=== PATIENT | female | born 1960 | race Caucasian/White ===

== ENCOUNTER → 2019-01-06 | Outpatient (CLI) | payer MEDICARE ==
--- NOTE | 2019-01-06 10:37 | Diagnostic Imaging Report ---
PROCEDURE: CT head without contrast. TECHNIQUE: Multiple contiguous axial images were obtained through the brain without the use of intravenous contrast. Auto Exposure Controls were utilized during the CT exam to meet ALARA standards for radiation dose reduction. INDICATION: Head injury. Headaches. Blurred vision. COMPARISON: None. FINDINGS: No intracranial hemorrhage, mass effect, hydrocephalus or extra-axial fluid collections. No CT evidence of a territorial infarction. Osseous structures are intact. The visualized paranasal sinuses and mastoids are clear. IMPRESSION: No acute intracranial CT findings. Dictated by: Dictated on workstation # [id number]
== END ==
LOC: RAD FS 09:56
PROVIDERS: ATTEND Nurse Practitioner Family
DX: S09.90XA Unspecified injury of head, initial encounter (principal); H53.8 Other visual disturbances
CPT/HCPCS: 70450

== ENCOUNTER → 2020-04-04 | Outpatient (CLI) | payer MEDICARE ==
[~2020-04-04] MED LIST: CATHETER FLUSH 10 ML SYR IV PRN; HOLD METFORMIN - RECEIVED CONTRAST 20 ML VIAL IV SCH; IOHEXOL 350 MG/ML 100 ML (OMNIPAQUE 350) VIAL IV ONE; NS 100 ML (IVPB) BAG IV ONE
--- NOTE | 2020-04-04 12:53 | Diagnostic Imaging Report ---
PROCEDURE: CT abdomen and pelvis with contrast. TECHNIQUE: Multiple contiguous axial images were obtained through the abdomen and pelvis after administration of intravenous contrast. Auto Exposure Controls were utilized during the CT exam to meet ALARA standards for radiation dose reduction. INDICATION: Lower abdominal pain, history of ovarian carcinoma. COMPARISON: There are no prior studies available for comparison. There is a lobulated 3.4 x 4.8 cm solid mass along the posterior aspect of the rectosigmoid junction. Along the lateral margin of this mass, on the right, there is a contiguous 1.5 x 2.1 cm low density area which may represent a cyst. This mass is of uncertain etiology but should be considered neoplastic until proven otherwise. Whether this is related to the patient's diagnosis of ovarian carcinoma or whether this is arising from the rectosigmoid portion of the colon is unclear. Endoscopy would be recommended for further evaluation. If further imaging is desired, then a PET/CT exam should be obtained. The uterus and ovaries appear to be surgically absent. The urinary bladder is grossly unremarkable. There does appear to be a fair amount of fecal material throughout the colon. The appendix was not well-visualized but there are no indirect signs of acute appendicitis. There is a lobulated 1.4 cm area of low density in the left lobe of the liver. This is most likely a cyst. There are also a few subcentimeter areas of low density in the left and right lobes. These too are probably cysts. If further study is desired, ultrasound would be recommended. The liver is otherwise homogeneous and not enlarged. The spleen, pancreas, gallbladder, adrenals, kidneys, aorta, portal vein and inferior vena cava show no sign of an acute abnormality. The stomach is not well distended and difficult to assess. The lung bases are clear. The bone windows show no evidence for a fracture or for a destructive lesion. There are bilateral breast implants in place. The implants, where visualized, appear to be intact. IMPRESSION: 1. There is a lobulated complex predominantly solid mass along the posterior margin of the rectosigmoid junction. This finding is worrisome for neoplasm. Recommendations as above. 2. There is no acute abnormality of the abdomen or pelvis noted otherwise. 3. There is a considerable amount of fecal material throughout the colon. Dictated by: Dictated on workstation # [id number]
== END ==
LOC: RAD FS 11:12
PROVIDERS: ATTEND Nurse Practitioner Family
DX: K63.89 Other specified diseases of intestine (principal); Z85.43 Personal history of malignant neoplasm of ovary
CPT/HCPCS: 74177

== ENCOUNTER 2020-08-14 19:31 | Emergency (ER) | payer MEDICARE ==
[~2020-08-14] VITALS: Ht 160 cm; Wt 81.6 kg
[2020-08-14] MEDS ORDERED: FAMOTIDINE 20MG/2ML IV (PEPCID) IVP ONE (19:45)
[2020-08-14] MEDS ORDERED: PROCHLORPERAZINE 10 MG/2ML INJ (COMPAZINE) IV ONE (19:45)
[2020-08-14 20:07] LABS: WHITE BLOOD COUNT 12.7 10^3/uL (4.3-11.0)
[2020-08-14 20:08] LABS: BASOPHILS % (AUTO) 0 % (0-10); EOSINOPHILS % (AUTO) 0 % (0-10); HEMATOCRIT 35 % (35-52); HEMOGLOBIN 11.9 G/DL (11.5-16.0); LYMPHOCYTES # (AUTO) 0.4 X 10^3 (1.0-4.0); LYMPHOCYTES % (AUTO) 3 % (12-44); MEAN CORPUSCULAR HEMOGLOBIN 31 PG (25-34); MEAN CORPUSCULAR HGB CONC 35 G/DL (32-36); MEAN CORPUSCULAR VOLUME 89 FL (80-99); MEAN PLATELET VOLUME 9.4 FL (7.4-10.4); MONOCYTES # (AUTO) 0.2 X 10^3 (0.0-1.0); MONOCYTES % (AUTO) 1 % (0-12); NEUTROPHILS % (AUTO) 95 % (42-75); PLATELET COUNT 280 10^3/uL (130-400)
[2020-08-14] MEDS: NS IV 1000 ML 1,000 ML IV SCH ×2 (20:10→21:15)
[2020-08-14 20:23] LABS: BAND NEUTROPHILS 1 %; BASOPHILS % (MANUAL) 1 %; EOSINOPHILS % (MANUAL) 0 %; LYMPHOCYTES % (MANUAL) 3 %; MONOCYTES % (MANUAL) 2 %; NEUTROPHILS % (MANUAL) 93 %
--- NOTE | 2020-08-14 20:30 | Diagnostic Imaging Report ---
PATIENT HISTORY: Nausea and vomiting. Abdominal pain. History of ovarian cancer. TECHNIQUE: Three views of the chest and abdomen were obtained. COMPARISON: 04/04/2020. FINDINGS: A right port is visualized, the tip overlying the mid SVC. The lung volumes are normal. No focal consolidation is seen. No large pleural effusion or pneumothorax is seen. The cardiomediastinal silhouette is normal in size and contour. No acute osseous abnormality is seen. Scattered calcified granulomas are noted in the lungs, bilaterally. Distended loops of small bowel are seen in the left hemiabdomen measuring up to 4.8 cm. A large amount of stool is seen in the colon. No large collection of intraperitoneal free air. Surgical clips are seen in the pelvis right of midline. IMPRESSION: 1. Distended loops of small bowel in the left hemiabdomen, concerning for early small bowel obstruction given the large amounts of stool in the colon. No large collection of free intraperitoneal air. Recommend follow-up, as indicated. 2. No focal consolidation or pulmonary mass. Dictated by: Dictated on workstation # [id number]
[2020-08-14 20:33] LABS: BUN/CREATININE RATIO 21; CARBON DIOXIDE 25 MMOL/L (21-32); CHLORIDE 99 MMOL/L (98-107); CREATININE SERUM 0.71 MG/DL (0.60-1.30); GFR ESTIMATED > 60; POTASSIUM 3.5 MMOL/L (3.6-5.0); SODIUM 137 MMOL/L (135-145)
[2020-08-14 20:34] LABS: ALANINE AMINOTRANSFERASE 9 U/L (0-55); ALKALINE PHOSPHATASE 96 U/L (40-136); BILIRUBIN,TOTAL 0.9 MG/DL (0.1-1.0); CALCIUM 8.8 MG/DL (8.5-10.1); GLUCOSE 118 MG/DL (70-105); LIPASE 10 U/L (8-78); TOTAL PROTEIN 6.6 GM/DL (6.4-8.2)
[2020-08-14 20:42] LABS: CLARITY,URINE CLEAR; COLOR,URINE YELLOW
[2020-08-14 20:43] LABS: BACTERIA,URINE TRACE /HPF; BILIRUBIN,URINE NEGATIVE (NEGATIVE); GLUCOSE, URINE (UA) NEGATIVE (NEGATIVE); KETONES,URINE TRACE (NEGATIVE); LEUKOCYTE ESTERASE ,URINE NEGATIVE (NEGATIVE); NITRITE,URINE NEGATIVE (NEGATIVE); PROTEIN,URINE NEGATIVE (NEGATIVE); WBC,URINE RARE /HPF
[2020-08-14] MEDS ORDERED: morphine INJ 10 MG/ML 1ML (SYR OR VIAL) IVP STA (21:09)
--- NOTE | 2020-08-14 21:40 | ED General ---
General Chief Complaint: Abdominal/GI Problems Stated Complaint: NAUSEA Nursing Triage Note: PT TO ROOM FS01 VIA [facility] WITH C/O N/V/ABD PAIN. PT REPORTS OVARIAN CANCER AND HAD A TX ON WEDNESDAY. PT STATES THAT SHE IS NORMALLY NAUSEATED FOR A COUPLE DAYS AND TODAY IT IS WORSE THAN NORMAL AND HER ABD IS CRAMPING. PT GIVEN ZOFRAN AND 100MCG FENT ENROUTE BY EMS. Nursing Sepsis Screen: No Definite Risk Source of Information: Patient History of Present Illness Date Seen by Provider: Aug 14, 2020 Time Seen by Provider: 19:30 Initial Comments Patient is a 60-year-old female with history of ovarian cancer currently on chemotherapy and received most recent round 2 days ago. Patient reports diffuse lower abdominal cramping, diarrhea nausea and vomiting. Symptoms are different than previous reactions to chemotherapy which normally resulted in fatigue. Patient denies fever chills, sweats. No chest pain palpitations, shortness of breath. No hematemesis coffee-ground emesis. Patient's oncologist practices at [facility]. Timing/Duration: 1-2 Days Severity: Moderate Associated Systoms: Weakness, Other Allergies and Home Medications Allergies Coded Allergies: No Known Drug Allergies (Unverified , 04/04/20) Patient Home Medication List Home Medication List Reviewed: Yes Review of Systems Review of Systems Constitutional: see HPI EENTM: see HPI Respiratory: see HPI Cardiovascular: see HPI Gastrointestinal: see HPI Genitourinary: see HPI Musculoskeletal: see HPI Psychiatric/Neurological: See HPI Hematologic/Lymphatic: See HPI Immunological/Allergic: see HPI All Other Systems Reviewed Negative Unless Noted: Yes Past Dekvegd-Iimrvk-Xvaubw Hx Past Med/Social Hx: Reviewed Nursing Past Med/Soc Hx Patient Social History Alcohol Use: Denies Use Smoking Status: Former Smoker Type Used: Electronic/Vapor 2nd Hand Smoke Exposure: No Recent Infectious Disease Expo: No Recent Hopitalizations: No Seasonal Allergies Seasonal Allergies: No Past Medical History Surgeries: Yes Breast, Gallbladder, Hysterectomy Respiratory: No Cardiac: No Neurological: No Genitourinary: No Gastrointestinal: No Musculoskeletal: No Endocrine: Yes Hypothyroidsim HEENT: No Cancer: Yes Breast, Ovarian What Type of Treatment Did You: Chemotherapy, Surgical Intervention Psychosocial: No Integumentary: No Blood Disorders: No Physical Exam Vital Signs Vital Signs - First Documented 08/14/20 19:35 Temp 36.4 Pulse 66 Resp 17 B/P (MAP) 167/89 (115) O2 Delivery Room Air Capillary Refill : Less Than 3 Seconds Height, Weight, BMI Height: '" Weight: lbs. oz. kg; 31.00 BMI Method: General Appearance: No Apparent Distress Eyes: Bilateral Eye Normal Inspection, Bilateral Eye PERRL, Bilateral Eye EOMI HEENT: PERRL/EOMI, Normal ENT Inspection, Pharynx Normal Neck: Full Range of Motion, Non Tender, Supple Respiratory: Lungs Clear Cardiovascular: Regular Rate, Rhythm Gastrointestinal: Soft, Distended (No rebound rigidity or guarding.), Other Back: Normal Inspection, No CVA Tenderness Neurologic/Psychiatric: Alert, Oriented x3, No Motor/Sensory Deficits Skin: Normal Color Lymphatic: No Adenopathy Focused Exam Sepsis Stage: Ruled Out Lactate Level 08/14/20 20:05: Lactic Acid Level 2.15*H Lactic Acid Level Laboratory Tests Test 08/14/20 20:05 Lactic Acid Level 2.15 MMOL/L (0.50-2.00) *H Progress/Results/Core Measures Suspected Sepsis Recent Fever Within 48 Hours: No Infection Criteria Present: None New/Unexplained Altered Menta: No Sepsis Screen: No Definite Risk SIRS Temperature: Pulse: 66 Respiratory Rate: 17 Laboratory Tests 08/14/20 19:39: White Blood Count 12.7H Blood Pressure 167 /89 Mean: 115 08/14/20 20:05: Lactic Acid Level 2.15*H Laboratory Tests 08/14/20 19:39: Creatinine 0.71, Platelet Count 280, Total Bilirubin 0.9 Results/Orders Lab Results Laboratory Tests Test 08/14/20 19:39 08/14/20 20:05 08/14/20 20:20 Range/Units White Blood Count 12.7 H 4.3-11.0 10^3/uL Red Blood Count 3.87 L 4.35-5.85 10^6/uL Hemoglobin 11.9 11.5-16.0 G/DL Hematocrit 35 35-52 % Mean Corpuscular Volume 89 80-99 FL Mean Corpuscular Hemoglobin 31 25-34 PG Mean Corpuscular Hemoglobin Concent 35 32-36 G/DL Red Cell Distribution Width 16.9 H 10.0-14.5 % Platelet Count 280 130-400 10^3/uL Mean Platelet Volume 9.4 7.4-10.4 FL Immature Granulocyte % (Auto) 1 % Neutrophils (%) (Auto) 95 H 42-75 % Lymphocytes (%) (Auto) 3 L 12-44 % Monocytes (%) (Auto) 1 0-12 % Eosinophils (%) (Auto) 0 0-10 % Basophils (%) (Auto) 0 0-10 % Neutrophils # (Auto) 12.0 H 1.8-7.8 X 10^3 Lymphocytes # (Auto) 0.4 L 1.0-4.0 X 10^3 Monocytes # (Auto) 0.2 0.0-1.0 X 10^3 Eosinophils # (Auto) 0.0 0.0-0.3 10^3/uL Basophils # (Auto) 0.0 0.0-0.1 10^3/uL Immature Granulocyte # (Auto) 0.1 0.0-0.1 10^3/uL Neutrophils % (Manual) 93 % Lymphocytes % (Manual) 3 % Monocytes % (Manual) 2 % Eosinophils % (Manual) 0 % Basophils % (Manual) 1 % Band Neutrophils 1 % Sodium Level 137 135-145 MMOL/L Potassium Level 3.5 L 3.6-5.0 MMOL/L Chloride Level 99 98-107 MMOL/L Carbon Dioxide Level 25 21-32 MMOL/L Anion Gap 13 5-14 MMOL/L Blood Urea Nitrogen 15 7-18 MG/DL Creatinine 0.71 0.60-1.30 MG/DL Estimat Glomerular Filtration Rate > 60 BUN/Creatinine Ratio 21 Glucose Level 118 H 70-105 MG/DL Calcium Level 8.8 8.5-10.1 MG/DL Corrected Calcium 8.8 8.5-10.1 MG/DL Total Bilirubin 0.9 0.1-1.0 MG/DL Aspartate Amino Transf (AST/SGOT) 15 5-34 U/L Alanine Aminotransferase (ALT/SGPT) 9 0-55 U/L Alkaline Phosphatase 96 40-136 U/L Troponin I < 0.30 <0.30 NG/ML Total Protein 6.6 6.4-8.2 GM/DL Albumin 4.0 3.2-4.5 GM/DL Lipase 10 8-78 U/L Lactic Acid Level 2.15 *H 0.50-2.00 MMOL/L Urine Color YELLOW Urine Clarity CLEAR Urine pH 8.0 5-9 Urine Specific [place] 1.010 L 1.016-1.022 Urine Protein NEGATIVE NEGATIVE Urine Glucose (UA) NEGATIVE NEGATIVE Urine Ketones TRACE H NEGATIVE Urine Nitrite NEGATIVE NEGATIVE Urine Bilirubin NEGATIVE NEGATIVE Urine Urobilinogen 0.2 < = 1.0 MG/DL Urine Leukocyte Esterase NEGATIVE NEGATIVE Urine RBC (Auto) NEGATIVE NEGATIVE Urine RBC NONE /HPF Urine WBC RARE /HPF Urine Squamous Epithelial Cells 2-5 /HPF Urine Crystals NONE /LPF Urine Bacteria TRACE /HPF Urine Casts NONE /LPF Urine Mucus NEGATIVE /LPF Urine Culture Indicated NO My Orders Orders - MARTY ARMENDARIZ DO Cbc And Manual Diff (08/14/20 19:45) Comprehensive Metabolic Panel (08/14/20 19:45) Lipase (08/14/20 19:45) Acute Abd Series (08/14/20 19:45) Urinalysis (08/14/20 19:45) Troponin I Fs (08/14/20 19:45) Ekg-Prn For Chest Pain Or Rhyt (08/14/20 19:45) Ns Iv 1000 Ml (Sodium Chloride 0.9%) (08/14/20 19:45) Famotidine Injection (Pepcid Injection) (08/14/20 19:45) Prochlorperazine Injection (Compazine In (08/14/20 19:45) Lactic Acid Analyzer (08/14/20 19:45) Morphine Injection (Morphine Injection (08/14/20 21:09) Medications Given in ED Current Medications Medications Dose Ordered Sig/Alfa Route Start Time Stop Time Status Last Admin Dose Admin Famotidine 20 mg ONCE ONCE IVP 08/14/20 19:45 08/14/20 19:48 DC 08/14/20 20:11 20 MG Prochlorperazine Edisylate 10 mg ONCE ONCE IV 08/14/20 19:45 08/14/20 19:48 DC 08/14/20 20:11 10 MG Vital Signs/I&O 08/14/20 19:35 Temp 36.4 Pulse 66 Resp 17 B/P (MAP) 167/89 (115) O2 Delivery Room Air Capillary Refill : Less Than 3 Seconds Blood Pressure Mean: 115 Departure Communication (Admissions) Acute abdominal series: Dilated small bowel loops consistent with small bowel obstruction per radiologist Patient with findings of small bowel obstruction. Unfortunately due to technical reasons the CT scan is not available at this facility. Patient accepted by Dr. Hurt at [facility]. Impression Primary Impression: Diarrhea Additional Impressions: Nausea alone Small bowel obstruction Ovarian cancer Disposition: ADMITTED INPATIENT Condition: Stable Admissions Decision to Admit Reason: Admit from ER (General) Transfer Method of Transfer: EMS Departure-Patient Inst. Decision time for Depature: 21:00 Referrals: [facility] (PCP) Primary Care Physician BHASKAR BENSON APRN (Family) Primary Care Physician MARTY ARMENDARIZ DO Aug 14, 2020 21:40
[2020-08-14 21:59] VITALS: BP 129/70
== END 2020-08-14 22:04 | disposition short-term general hospital (02) ==
LOC: EDUNIT# 19:31 → ER FS 19:32
DX: R19.7 Diarrhea, unspecified (principal); K56.699 Other intestinal obstruction unspecified as to partial versus complete obstruction; C56.9 Malignant neoplasm of unspecified ovary; Z85.3 Personal history of malignant neoplasm of breast; Z87.891 Personal history of nicotine dependence
CPT/HCPCS: 36415; 74022; 80053; 81000; 83605; 83690; 84484; 85007; 85027